=== PATIENT | female | born 1985 | race American Indian/Alaskan Native ===

== ENCOUNTER 2021-04-26 19:47 | Emergency (ER) | payer OTHER, SELFPAY ==
--- NOTE | 2021-04-27 02:13 | XRay Report ---
CHEST 2 VIEWS INDICATION: chestpain. COMPARISON: None FINDINGS: SUPPORT DEVICES: None. HEART: Within normal limits. LUNGS/PLEURA: Minimal streaky left basilar airspace disease with otherwise clear lungs. No pneumotho rax. ADDITIONAL FINDINGS: None. IMPRESSION: 1. Pulmonary findings as above. Signer Name: Ángel Lam MD Signed: 04/27/2021 2:08 AM Workstation Name: [id number]
--- NOTE | 2021-04-27 05:30 | Emergency Department Report ---
- General Chief Complaint: Chest Pain Stated Complaint: CHEST PAIN/BACK PAIN Time Seen by Provider: 04/27/21 05:07 Source: patient Mode of arrival: Ambulatory Limitations: No Limitations - History of Present Illness Initial Comments: 36-year-old -[place] female presents to the emergency room stating that she has been recovering from Covid and now has left rib cage pain x1 week. States that today she started having chest pain and shortness of breath on exertion. Patient reports that she has lost her taste and smell. She reports that her mother is in ICU with Covid now. Patient has not been tested for Covid nor has she been vaccinated. Patient denies any control use. Denies any past medical history takes no meds on a daily basis. MD Complaint: other (Rib pain) Onset/Timin -: week(s) Severity: mild Severity scale (0 -10): 3 Quality: aching Consistency: intermittent Improves With: nothing Worsens With: deep breaths Context: sick contacts Associated Symptoms: other (Loss of taste and smell). denies: fever, chills, nausea, vomiting, diarrhea, right sweats - Related Data Previous Rx's Medication Instructions Recorded Last Taken Type Azithromycin [Zithromax Z-ALBIN] 0 mg PO DAILY #6 tab 04/27/21 Unknown Rx Ibuprofen [Motrin 800 MG tab] 800 mg PO Q8HR PRN #21 tablet 04/27/21 Unknown Rx Allergies Allergy/AdvReac Type Severity Reaction Status Date / Time No Known Allergies Allergy Unverified 04/27/21 00:48 ED Review of Systems ROS: Stated complaint: CHEST PAIN/BACK PAIN Other details as noted in HPI Comment: All other systems reviewed and negative ED Past Medical Hx - Past Medical History Previous Medical History?: Yes Additional medical history: Pneumonia. COVID - Surgical History Past Surgical History?: Yes Additional Surgical History: Liposuction - Social History Smoking Status: Never Smoker Substance Use Type: None - Medications Home Medications: Home Medications Medication Instructions Recorded Confirmed Last Taken Type Azithromycin [Zithromax Z-ALBIN] 0 mg PO DAILY #6 tab 04/27/21 Unknown Rx Ibuprofen [Motrin 800 MG tab] 800 mg PO Q8HR PRN #21 tablet 04/27/21 Unknown Rx ED Physical Exam - General Limitations: No Limitations General appearance: alert - Head Head exam: Present: atraumatic, normocephalic - Eye Eye exam: Present: normal appearance - ENT ENT exam: Present: normal exam - Neck Neck exam: Present: full ROM - Respiratory Respiratory exam: Present: normal lung sounds bilaterally. Absent: respiratory distress, chest wall tenderness, accessory muscle use - Cardiovascular Cardiovascular Exam: Present: regular rate - Extremities Exam Extremities exam: Present: normal inspection - Back Exam Back exam: Present: normal inspection - Neurological Exam Neurological exam: Present: alert, oriented X3, normal gait - Psychiatric Psychiatric exam: Present: normal affect, normal mood - Skin Skin exam: Present: warm, dry, intact, normal color. Absent: rash ED Course Vital Signs 04/27/21 00:37 Temperature 98.6 F Pulse Rate 62 Respiratory 18 Rate Blood Pressure 115/62 O2 Sat by Pulse 100 Oximetry ED Medical Decision Making - Radiology Data Radiology results: report reviewed [facility] [address] [place] [address] XRay Report Signed Patient: LESLYE NICHOLSON MR#: [id number] 5 : 1985 Acct:[id number] Age/Sex: 36 / F ADM Date: 04/26/21 Loc: ED Attending Dr: Ordering Physician: ED MD ANGE Date of Service: 04/27/21 Procedure(s): XR chest routine 2V Accession Number(s): [id number] cc: ED MD ANGE Fluoro Time In Minutes: CHEST 2 VIEWS INDICATION: chestpain. COMPARISON: None FINDINGS: SUPPORT DEVICES: None. HEART: Within normal limits. LUNGS/PLEURA: Minimal streaky left basilar airspace disease with otherwise clear lungs. No pneumothorax. ADDITIONAL FINDINGS: None. IMPRESSION: 1. Pulmonary findings as above. Signer Name: Ángel Lam MD Signed: 04/27/2021 2:08 AM Workstation Name: [id number] Transcribed By: KENNETH Dictated By: Ángel Lam MD Electronically Authenticated By: Ángle Lam MD Signed Date/Time: 04/27/21207 DD/ 7 TD/TT: Print - Medical Decision Making 36-year-old -[place] female presents to the emergency room stating that she has been recovering from Covid and now has left rib cage pain x1 week. States that today she started having chest pain and shortness of breath on exertion. Patient reports that she has lost her taste and smell. She reports that her mother is in ICU with Covid now. Patient has not been tested for Covid nor has she been vaccinated. Patient denies any control use. Denies any past medical history takes no meds on a daily basis. X-ray shows some streaking basilar atelectasis we will treat patient with azithromycin and prescription for ibuprofen. Patient is to follow-up with her primary care provider. Needs to be vaccinated and Covid tested. Critical care attestation.: If time is entered above; I have spent that time in minutes in the direct care of this critically ill patient, excluding procedure time. ED Disposition Clinical Impression: Suspected COVID-19 virus infection Disposition: TO HOME OR SELFCARE Is pt being admited?: No Does the pt Need Aspirin: No Condition: Stable Instructions: COVID-19: How to Protect Yourself and Others - CDC, COVID-19 Frequently Asked Questions Additional Instructions: Complete antibiotics as prescribed. Get Covid testing. Follow-up with your primary care provider. Your symptoms appear most consistent with a nonspecific viral syndrome. However, given this current pandemic, COVID-19 is in the differential of possibilities. I do recommend outpatient Covid 19 testing. In the meantime, isolate/quarantine yourself and stay away from anyone who is elderly, immunoco mpromised or chronically ill. You can use ibuprofen every 6-8 hours and Tylenol every 4-8 hours, using the dosing on the back of the bottle, as needed for any fever or body aches. Return to the emergency department with any worsening of your symptoms, development of chest pain or shortness of breath, or with any acute distress. Prescriptions: Ibuprofen [Motrin 800 MG tab] 800 mg PO Q8HR PRN #21 tablet PRN Reason: Pain , Severe (7-10) Azithromycin [Zithromax Z-ALBIN] 0 mg PO DAILY #6 tab Referrals: LINO OCHOA MD [Primary Care Provider] - 3-5 Days Time of Disposition: 05:37
[2021-04-27 06:31] VITALS: BP 116/69
--- NOTE | 2021-04-28 13:34 | Electrocardiograph Report ---
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
== END 2021-04-27 05:45 | disposition home or self-care (01) ==
LOC: ED 19:47
DX: M54.9 Dorsalgia, unspecified (principal); R07.9 Chest pain, unspecified; Z20.822 Contact with and (suspected) exposure to COVID-19; Z79.899 Other long term (current) drug therapy; Z98.890 Other specified postprocedural states
CPT/HCPCS: 71046; 93005